=== PATIENT | male | born 1945 | race Caucasian/White ===

== ENCOUNTER 2017-01-05 21:50 | Inpatient (IN) | payer MEDICARE, SELFPAY ==
[~2017-01-05] VITALS: Ht 167.6 cm; Wt 71.9 kg
[2017-01-05 22:38] LABS: HEMOGLOBIN 16.5 gm/dl (14.0-17.5); RED BLOOD COUNT 4.64 M/UL (4.20-5.50); WHITE BLOOD COUNT 11.1 K/UL (4.5-11.0)
[2017-01-06 21:18] LABS: HEMOGLOBIN 14.8 gm/dl (14.0-17.5); RED BLOOD COUNT 4.19 M/UL (4.20-5.50); WHITE BLOOD COUNT 11.1 K/UL (4.5-11.0)
[2017-01-07 04:29] LABS: HEMOGLOBIN 14.7 gm/dl (14.0-17.5); RED BLOOD COUNT 4.17 M/UL (4.20-5.50); WHITE BLOOD COUNT 10.5 K/UL (4.5-11.0)
[2017-01-08 03:48] LABS: HEMOGLOBIN 14.8 gm/dl (14.0-17.5); RED BLOOD COUNT 4.17 M/UL (4.20-5.50); WHITE BLOOD COUNT 9.1 K/UL (4.5-11.0)
[2017-01-09 02:29] LABS: HEMOGLOBIN 14.1 gm/dl (14.0-17.5); RED BLOOD COUNT 3.99 M/UL (4.20-5.50); WHITE BLOOD COUNT 7.7 K/UL (4.5-11.0)
[2017-01-10] MEDS ORDERED: NORVASC5 MG PO (01:27)
[2017-01-10 05:11] LABS: RED BLOOD COUNT 3.98 M/UL (4.20-5.50); WHITE BLOOD COUNT 7.2 K/UL (4.5-11.0)
[2017-01-11 02:41] LABS: HEMOGLOBIN 13.7 gm/dl (14.0-17.5); RED BLOOD COUNT 3.9 M/UL (4.20-5.50); WHITE BLOOD COUNT 6.8 K/UL (4.5-11.0)
[2017-01-12 06:44] LABS: HEMOGLOBIN 14.4 gm/dl (14.0-17.5); RED BLOOD COUNT 4.12 M/UL (4.20-5.50)
[2017-01-13 06:12] LABS: HEMOGLOBIN 14.6 gm/dl (14.0-17.5); RED BLOOD COUNT 4.17 M/UL (4.20-5.50)
[2017-01-13 06:22] LABS: BUN/CREATININE RATIO 45 (0-10)
[2017-01-14] MEDS ORDERED: ASPIR 8181 MG PO (17:35)
[2017-01-14] MEDS ORDERED: LIPITOR TAB 2020 MG PO (17:36)
[2017-01-14] MEDS ORDERED: BUMEX 1MG TABLET1 MG PO (17:36)
[2017-01-14] MEDS ORDERED: LEXAPRO10 MG PO (17:37)
[2017-01-14] MEDS ORDERED: LISINOPRIL2.5 MG PO (17:42)
[2017-01-14] MEDS ORDERED: METOPROLOL SUCC25 MG PO (17:43)
[2017-01-14] MEDS ORDERED: WARFARIN SODIUM1 MG PO (17:44)
[2017-01-14] MEDS ORDERED: COMBIVENT0.074 GM/I INH (17:44)
== END 2017-01-14 19:13 | disposition home health service (06) | DRG 291 ==
LOC: EDBD 21:50 → ER1 21:50 → ZEROF 23:40 → MED SURG 4 23:40
PROVIDERS: Emergency Medicine; Family Medicine; Internal Medicine; Internal Medicine Nephrology; Student in an Organized Health Care Education/Training Program; ADMIT Internal Medicine
DX: I13.0 Hypertensive heart and chronic kidney disease with heart failure and stage 1 through stage 4 chronic kidney disease, or unspecified chronic kidney disease (principal); I50.23 Acute on chronic systolic (congestive) heart failure; J96.21 Acute and chronic respiratory failure with hypoxia; N17.9 Acute kidney failure, unspecified; I74.3 Embolism and thrombosis of arteries of the lower extremities; I31.3 Pericardial effusion (noninflammatory); N39.0 Urinary tract infection, site not specified; S37.30XA Unspecified injury of urethra, initial encounter; N18.3 Chronic kidney disease, stage 3 (moderate); J44.9 Chronic obstructive pulmonary disease, unspecified; I42.0 Dilated cardiomyopathy; I48.2 Chronic atrial fibrillation; D69.6 Thrombocytopenia, unspecified; I08.1 Rheumatic disorders of both mitral and tricuspid valves; E78.5 Hyperlipidemia, unspecified; R31.9 Hematuria, unspecified; Y84.6 Urinary catheterization as the cause of abnormal reaction of the patient, or of later complication, without mention of misadventure at the time of the procedure; Y73.1 Therapeutic (nonsurgical) and rehabilitative gastroenterology and urology devices associated with adverse incidents; D75.89 Other specified diseases of blood and blood-forming organs; R74.8 Abnormal levels of other serum enzymes; F32.9 Major depressive disorder, single episode, unspecified; F17.210 Nicotine dependence, cigarettes, uncomplicated; Z79.899 Other long term (current) drug therapy; Z88.6 Allergy status to analgesic agent; Z82.49 Family history of ischemic heart disease and other diseases of the circulatory system
CPT/HCPCS: ECHO; 36415; 51702; 71010; 76705; 78452; 80048; 80053; 80074; 81001; 82043; 82436; 82550; 82553; 82570; 82607; 83605; 83735; 83874; 83880; 84133; 84300; 84443; 84484; 85025; 85027; 85610; 85730; 87040; 87070; 87086; 87205; 93005; 93017; 93306; 93925; 94640; 94664; 96374; 96375; 97110; 97116; 97530; 99285; A9502; J0696; J1205; J1644; J1650; J1940; J2785; J7050

== ENCOUNTER → 2017-01-23 | Outpatient (CLI) | payer MEDICARE ==
[~2017-01-23] VITALS: Ht 167.6 cm; Wt 70.3 kg
[~2017-01-23] MED LIST: ALDACTONE25 MG PO; ASPIR 8181 MG PO; BUMEX 1MG TABLET1 MG PO; COMBIVENT0.074 GM/I INH; LANOXIN TAB 00.25 MG PO; LEXAPRO10 MG PO; LIPITOR TAB 2020 MG PO; LISINOPRIL2.5 MG PO; LOPRESSOR50 MG PO; METOPROLOL SUCC25 MG PO; NORVASC5 MG PO; WARFARIN SODIUM1 MG PO
== END ==
LOC: OPSV 15:32
DX: I48.91 Unspecified atrial fibrillation (principal)
CPT/HCPCS: 96372; J3430

== ENCOUNTER 2017-03-20 09:17 | Inpatient (IN) | payer MEDICARE ==
[~2017-03-20] VITALS: Ht 167.6 cm; Wt 75.3 kg
[~2017-03-20 09:17] MED LIST changes: -ALDACTONE25 MG PO; -LANOXIN TAB 00.25 MG PO; -LOPRESSOR50 MG PO
[2017-03-20 11:37] LABS: HEMOGLOBIN 12.1 gm/dl (14.0-17.5); RED BLOOD COUNT 3.47 M/UL (4.20-5.50); WHITE BLOOD COUNT 9.5 K/UL (4.5-11.0)
[2017-03-21 03:52] LABS: HEMOGLOBIN 12.6 gm/dl (14.0-17.5); RED BLOOD COUNT 3.66 M/UL (4.20-5.50); WHITE BLOOD COUNT 7.6 K/UL (4.5-11.0)
[2017-03-22 03:53] LABS: HEMOGLOBIN 11.4 gm/dl (14.0-17.5); RED BLOOD COUNT 3.31 M/UL (4.20-5.50); WHITE BLOOD COUNT 7.4 K/UL (4.5-11.0)
[2017-03-25 04:26] LABS: BUN/CREATININE RATIO 38 (0-10)
[2017-03-26 03:51] LABS: HEMOGLOBIN 12.8 gm/dl (14.0-17.5); RED BLOOD COUNT 3.68 M/UL (4.20-5.50); WHITE BLOOD COUNT 6.4 K/UL (4.5-11.0)
[2017-03-26 04:14] LABS: BUN/CREATININE RATIO 35 (0-10)
[2017-03-27 04:45] LABS: HEMOGLOBIN 12.2 gm/dl (14.0-17.5); RED BLOOD COUNT 3.52 M/UL (4.20-5.50)
[2017-03-27 04:46] LABS: WHITE BLOOD COUNT 10.8 K/UL (4.5-11.0)
[2017-03-28 04:00] LABS: HEMOGLOBIN 13.5 gm/dl (14.0-17.5); WHITE BLOOD COUNT 9.7 K/UL (4.5-11.0)
[2017-03-28 04:01] LABS: RED BLOOD COUNT 3.88 M/UL (4.20-5.50)
[2017-03-29 04:00] LABS: HEMOGLOBIN 13.2 gm/dl (14.0-17.5); RED BLOOD COUNT 3.79 M/UL (4.20-5.50); WHITE BLOOD COUNT 9.9 K/UL (4.5-11.0)
[2017-04-01 03:45] LABS: HEMOGLOBIN 13.7 gm/dl (14.0-17.5); RED BLOOD COUNT 3.92 M/UL (4.20-5.50)
[2017-04-01] MEDS ORDERED: LANOXIN TAB 00.25 MG PO (11:12)
[2017-04-01] MEDS ORDERED: LOPRESSOR50 MG PO (11:17)
[2017-04-01] MEDS ORDERED: ALDACTONE25 MG PO (11:20)
== END 2017-04-01 10:00 | disposition home health service (06) | DRG 291 ==
LOC: ER1 09:17 → ZEROF 12:53 → PROG CARE 12:53 → CCU 03-25 22:44 → PROG CARE 03-28 20:00
PROVIDERS: Family Medicine; Internal Medicine; Internal Medicine Interventional Cardiology; Internal Medicine Pulmonary Disease; ADMIT Emergency Medicine
PROC: 5A09457 Assistance with Respiratory Ventilation, 24-96 Consecutive Hours, Continuous Positive Airway Pressure (ICD-10-PCS; principal; 2017-03-20)
DX: I13.0 Hypertensive heart and chronic kidney disease with heart failure and stage 1 through stage 4 chronic kidney disease, or unspecified chronic kidney disease (principal); I50.23 Acute on chronic systolic (congestive) heart failure; J96.22 Acute and chronic respiratory failure with hypercapnia; J96.21 Acute and chronic respiratory failure with hypoxia; G93.40 Encephalopathy, unspecified; N17.9 Acute kidney failure, unspecified; E87.1 Hypo-osmolality and hyponatremia; J44.1 Chronic obstructive pulmonary disease with (acute) exacerbation; D68.4 Acquired coagulation factor deficiency; E87.3 Alkalosis; I42.0 Dilated cardiomyopathy; N18.3 Chronic kidney disease, stage 3 (moderate); E87.5 Hyperkalemia; T45.515A Adverse effect of anticoagulants, initial encounter; T50.1X5A Adverse effect of loop [high-ceiling] diuretics, initial encounter; I48.2 Chronic atrial fibrillation; D69.6 Thrombocytopenia, unspecified; D53.9 Nutritional anemia, unspecified; E78.5 Hyperlipidemia, unspecified; I73.9 Peripheral vascular disease, unspecified; R74.8 Abnormal levels of other serum enzymes; R74.0 Nonspecific elevation of levels of transaminase and lactic acid dehydrogenase [LDH]; Z87.891 Personal history of nicotine dependence; Z79.01 Long term (current) use of anticoagulants; Z79.82 Long term (current) use of aspirin; Z79.899 Other long term (current) drug therapy; Z82.49 Family history of ischemic heart disease and other diseases of the circulatory system
CPT/HCPCS: ECHO; 36415; 36600; 71010; 71020; 80048; 80053; 80162; 81001; 82550; 82553; 82803; 82962; 83735; 83874; 83880; 84439; 84443; 84484; 85025; 85027; 85610; 85730; 93005; 93306; 94640; 94660; 94664; 96374; 96375; 97110; 97116; 97530; 99285; J1120; J1160; J1250; J1940; J2550; J2930; J7050

== ENCOUNTER → 2017-04-22 | Outpatient (CLI) | payer MEDICARE, OTHER ==
[~2017-04-22] MED LIST changes: +ALDACTONE25 MG PO; +LANOXIN TAB 00.25 MG PO; +LOPRESSOR50 MG PO
== END ==
LOC: ECHO 04-17 14:00
DX: I50.9 Heart failure, unspecified (principal); I34.0 Nonrheumatic mitral (valve) insufficiency
CPT/HCPCS: ECHO; 93306

== ENCOUNTER 2022-02-17 23:44 | Inpatient (IN) | payer MEDICARE, OTHER ==
[~2022-02-17] VITALS: Ht 167.6 cm; Wt 88.2 kg
[~2022-02-17 23:44] MED LIST changes: +AMLODIPINE BESYL5 MG PO; +CEFUROXIME250 MG PO; -COMBIVENT0.074 GM/I INH; +HYDRALAZINE HCL50 MG PO; +IPRAT-ALBUT 0.5-3 ML INH; -LIPITOR TAB 2020 MG PO; +LIPITOR80 MG PO; +LOPRESSOR 25 MG25 MG PO; +MEDROL4 MG PO
[2022-02-18 00:26] LABS: HEMOGLOBIN 13.9 gm/dl (14.0-17.5); RED BLOOD COUNT 4.14 M/UL (4.20-5.50); WHITE BLOOD COUNT 13.5 K/UL (4.5-11.0)
[2022-02-18] MEDS ORDERED: TRELEGY ELLIPT1 EACH INH (15:38)
[2022-02-19 03:13] LABS: HEMOGLOBIN 12.7 gm/dl (14.0-17.5); RED BLOOD COUNT 3.79 M/UL (4.20-5.50)
[2022-02-19 03:22] LABS: WHITE BLOOD COUNT 9.4 K/UL (4.5-11.0)
[2022-02-19 04:06] LABS: BUN/CREATININE RATIO 18 (0-10)
[2022-02-20 03:21] LABS: HEMOGLOBIN 13.8 gm/dl (14.0-17.5); RED BLOOD COUNT 4.12 M/UL (4.20-5.50)
[2022-02-20 03:22] LABS: WHITE BLOOD COUNT 15.3 K/UL (4.5-11.0)
[2022-02-20 03:25] LABS: BUN/CREATININE RATIO 24 (0-10)
[2022-02-21 03:26] LABS: HEMOGLOBIN 13.3 gm/dl (14.0-17.5); RED BLOOD COUNT 3.94 M/UL (4.20-5.50)
[2022-02-21 03:58] LABS: WHITE BLOOD COUNT 9.9 K/UL (4.5-11.0)
[2022-02-22 02:42] LABS: HEMOGLOBIN 13.2 gm/dl (14.0-17.5); RED BLOOD COUNT 3.97 M/UL (4.20-5.50); WHITE BLOOD COUNT 10.3 K/UL (4.5-11.0)
[2022-02-23] MEDS ORDERED: ATORVASTATIN CA40 MG PO (09:32)
[2022-02-23] MEDS ORDERED: MEDROL4 MG PO (09:32)
[2022-02-23] MEDS ORDERED: ELIQUIS 5 MG TAB5 MG PO (09:32)
[2022-02-23] MEDS ORDERED: LOPRESSOR 50 MG50 MG PO (09:36)
[2022-02-23] MEDS ORDERED: LEVOFLOXACIN750 MG PO (09:40)
[2022-02-23] MEDS ORDERED: GLUCOPHAGE 500500 MG PO (09:44)
[2022-02-23] MEDS ORDERED: DILTIAZEM 24HR180 M1 PO (09:57)
== END 2022-02-23 12:36 | disposition home health service (06) | DRG 308 ==
LOC: ER1 23:44 → CDU 02-18 01:58 → PROG CARE 02-18 01:58
PROVIDERS: Family Medicine; Internal Medicine; ADMIT Internal Medicine
PROC: B24BZZZ Ultrasonography of Heart with Aorta (ICD-10-PCS; principal; 2022-02-18)
PROC: 5A09457 Assistance with Respiratory Ventilation, 24-96 Consecutive Hours, Continuous Positive Airway Pressure (ICD-10-PCS; 2022-02-20)
PROC: 5A09357 Assistance with Respiratory Ventilation, Less than 24 Consecutive Hours, Continuous Positive Airway Pressure (ICD-10-PCS; 2022-02-20)
PROC: 5A09357 Assistance with Respiratory Ventilation, Less than 24 Consecutive Hours, Continuous Positive Airway Pressure (ICD-10-PCS; 2022-02-22)
PROC: 5A09357 Assistance with Respiratory Ventilation, Less than 24 Consecutive Hours, Continuous Positive Airway Pressure (ICD-10-PCS; 2022-02-23)
PROC: 5A0935A Assistance with Respiratory Ventilation, Less than 24 Consecutive Hours, High Flow/Velocity Cannula (ICD-10-PCS; 2022-02-23)
DX: I48.0 Paroxysmal atrial fibrillation (principal); J96.21 Acute and chronic respiratory failure with hypoxia; J18.9 Pneumonia, unspecified organism; I13.0 Hypertensive heart and chronic kidney disease with heart failure and stage 1 through stage 4 chronic kidney disease, or unspecified chronic kidney disease; Z20.822 Contact with and (suspected) exposure to COVID-19; G93.40 Encephalopathy, unspecified; I50.32 Chronic diastolic (congestive) heart failure; E87.2 Acidosis; I42.9 Cardiomyopathy, unspecified; D69.6 Thrombocytopenia, unspecified; N18.30 Chronic kidney disease, stage 3 unspecified; F17.210 Nicotine dependence, cigarettes, uncomplicated; E78.5 Hyperlipidemia, unspecified; I73.9 Peripheral vascular disease, unspecified; F32.A Depression, unspecified; E66.9 Obesity, unspecified; J44.9 Chronic obstructive pulmonary disease, unspecified; Z99.81 Dependence on supplemental oxygen; Z82.49 Family history of ischemic heart disease and other diseases of the circulatory system; Z79.01 Long term (current) use of anticoagulants; Z79.82 Long term (current) use of aspirin; Z68.31 Body mass index [BMI] 31.0-31.9, adult
CPT/HCPCS: ECHO; 36415; 36600; 71045; 71046; 71250; 80048; 80053; 82550; 82553; 82803; 82962; 83605; 83735; 83880; 84484; 85025; 85027; 85610; 87040; 92610; 93005; 93306; 94640; 94660; 94664; 94760; 96374; 96375; 97110-GP-CQ; 97116-GP-CQ; 97162; 97165; 97530-GP-CQ; 99285; J0696; J1335; J1940; J2185; J2920; U0002

== ENCOUNTER 2022-03-13 19:40 | Inpatient (IN) | payer MEDICARE, OTHER ==
[~2022-03-13] VITALS: Ht 167.6 cm; Wt 87.2 kg
[~2022-03-13 19:40] MED LIST changes: +ATORVASTATIN CA40 MG PO; +DILTIAZEM 24HR180 M1 PO; +ELIQUIS 5 MG TAB5 MG PO; +GLUCOPHAGE 500500 MG PO; +LEVOFLOXACIN750 MG PO; +LOPRESSOR 50 MG50 MG PO; +TRELEGY ELLIPT1 EACH INH
[2022-03-13 20:25] LABS: HEMOGLOBIN 13.2 gm/dl (14.0-17.5); RED BLOOD COUNT 3.94 M/UL (4.20-5.50); WHITE BLOOD COUNT 14.4 K/UL (4.5-11.0)
[2022-03-14 09:30] LABS: HEMOGLOBIN 11.6 gm/dl (14.0-17.5)
[2022-03-14 09:33] LABS: RED BLOOD COUNT 3.48 M/UL (4.20-5.50); WHITE BLOOD COUNT 6.7 K/UL (4.5-11.0)
[2022-03-14 10:01] LABS: BUN/CREATININE RATIO 22 (0-10)
[2022-03-14] MEDS ORDERED: GLUCOPHAGE 500500 MG PO (10:45)
[2022-03-14] MEDS ORDERED: MULTIVITAMIN1 EACH PO (12:28)
[2022-03-15 06:37] LABS: HEMOGLOBIN 10.5 gm/dl (14.0-17.5)
[2022-03-15 06:41] LABS: RED BLOOD COUNT 3.09 M/UL (4.20-5.50); WHITE BLOOD COUNT 8.9 K/UL (4.5-11.0)
[2022-03-16 04:32] LABS: HEMOGLOBIN 11.7 gm/dl (14.0-17.5); WHITE BLOOD COUNT 7.9 K/UL (4.5-11.0)
[2022-03-16 04:33] LABS: RED BLOOD COUNT 3.49 M/UL (4.20-5.50)
[2022-03-17] MEDS ORDERED: MEDROL DOSEPAK 24 MG PO (11:09)
[2022-03-17] MEDS ORDERED: OMNICEF 300 MG300 MG PO (11:09)
[2022-03-17] MEDS ORDERED: ACETAZOLAMIDE250 MG PO (11:10)
[2022-03-17] MEDS ORDERED: FUROSEMIDE20 MG PO (11:10)
== END 2022-03-17 13:20 | disposition home or self-care (01) | DRG 193 ==
LOC: ER1 19:40 → PROG CARE 21:10 → CDU 21:10 → PROG CARE 03-14 09:52
PROVIDERS: Internal Medicine; Preventive Medicine Occupational Medicine; ADMIT Internal Medicine
DX: J18.9 Pneumonia, unspecified organism (principal); J96.21 Acute and chronic respiratory failure with hypoxia; G93.41 Metabolic encephalopathy; I50.23 Acute on chronic systolic (congestive) heart failure; J96.22 Acute and chronic respiratory failure with hypercapnia; J44.1 Chronic obstructive pulmonary disease with (acute) exacerbation; I50.22 Chronic systolic (congestive) heart failure; I48.21 Permanent atrial fibrillation; I13.0 Hypertensive heart and chronic kidney disease with heart failure and stage 1 through stage 4 chronic kidney disease, or unspecified chronic kidney disease; J44.0 Chronic obstructive pulmonary disease with (acute) lower respiratory infection; N18.30 Chronic kidney disease, stage 3 unspecified; D64.9 Anemia, unspecified; D69.6 Thrombocytopenia, unspecified; E11.22 Type 2 diabetes mellitus with diabetic chronic kidney disease; Z66 Do not resuscitate; K59.00 Constipation, unspecified; I73.9 Peripheral vascular disease, unspecified; Z87.891 Personal history of nicotine dependence; Z79.01 Long term (current) use of anticoagulants; Z91.14 Patient's other noncompliance with medication regimen; Z99.81 Dependence on supplemental oxygen
CPT/HCPCS: 0240U; 36415; 36600; 71045; 80048; 80053; 80202; 81001; 82533; 82550; 82553; 82803; 82962; 83036; 83605; 83735; 83880; 84439; 84443; 84484; 85025; 85027; 85652; 86140; 87040; 87081; 87086; 93005; 94640; 94660; 94664; 94760; 96374; 99285; G0378; J0692; J0696; J1940; J2920; J3370; J7070

== ENCOUNTER 2022-03-25 23:13 | Inpatient (IN) | payer MEDICARE, OTHER ==
[~2022-03-25] VITALS: Ht 167.6 cm; Wt 86.2 kg
[~2022-03-25 23:13] MED LIST changes: +ACETAZOLAMIDE250 MG PO; +FUROSEMIDE20 MG PO; +MEDROL DOSEPAK 24 MG PO; +MULTIVITAMIN1 EACH PO; +OMNICEF 300 MG300 MG PO
[2022-03-25 23:54] LABS: HEMOGLOBIN 13.7 gm/dl (14.0-17.5); RED BLOOD COUNT 4.05 M/UL (4.20-5.50); WHITE BLOOD COUNT 14.6 K/UL (4.5-11.0)
[2022-03-26 00:25] LABS: BUN/CREATININE RATIO 39 (0-10)
[2022-03-26] MEDS ORDERED: FARXIGA10 MG PO (10:17)
[2022-03-27 06:25] LABS: HEMOGLOBIN 14.5 gm/dl (14.0-17.5); RED BLOOD COUNT 4.18 M/UL (4.20-5.50); WHITE BLOOD COUNT 11.2 K/UL (4.5-11.0)
[2022-03-27 07:11] LABS: BUN/CREATININE RATIO 34 (0-10)
[2022-03-28 10:12] LABS: BUN/CREATININE RATIO 28 (0-10)
[2022-03-29] MEDS ORDERED: ACETAZOLAMIDE250 MG PO (09:44)
[2022-03-29] MEDS ORDERED: FUROSEMIDE20 MG PO (09:44)
[2022-03-29] MEDS ORDERED: OMNICEF 300 MG300 MG PO (09:46)
== END 2022-03-29 12:28 | disposition home health service (06) | DRG 689 ==
LOC: ER1 23:13 → CDU 03-26 04:30 → MED SURG 4 03-26 04:30 → CDU 03-26 04:30 → MED SURG 4 03-26 15:40
PROVIDERS: Family Medicine; Internal Medicine; ADMIT Internal Medicine
PROC: 5A09357 Assistance with Respiratory Ventilation, Less than 24 Consecutive Hours, Continuous Positive Airway Pressure (ICD-10-PCS; principal; 2022-03-28)
PROC: 5A09357 Assistance with Respiratory Ventilation, Less than 24 Consecutive Hours, Continuous Positive Airway Pressure (ICD-10-PCS; 2022-03-29)
DX: N30.00 Acute cystitis without hematuria (principal); G93.41 Metabolic encephalopathy; N17.9 Acute kidney failure, unspecified; J96.11 Chronic respiratory failure with hypoxia; I50.42 Chronic combined systolic (congestive) and diastolic (congestive) heart failure; I13.0 Hypertensive heart and chronic kidney disease with heart failure and stage 1 through stage 4 chronic kidney disease, or unspecified chronic kidney disease; I48.20 Chronic atrial fibrillation, unspecified; I73.9 Peripheral vascular disease, unspecified; J44.9 Chronic obstructive pulmonary disease, unspecified; I48.0 Paroxysmal atrial fibrillation; E11.22 Type 2 diabetes mellitus with diabetic chronic kidney disease; E78.5 Hyperlipidemia, unspecified; R32 Unspecified urinary incontinence; R53.81 Other malaise; E11.51 Type 2 diabetes mellitus with diabetic peripheral angiopathy without gangrene; R53.83 Other fatigue; N18.30 Chronic kidney disease, stage 3 unspecified; Z99.81 Dependence on supplemental oxygen; Z82.49 Family history of ischemic heart disease and other diseases of the circulatory system; Z87.891 Personal history of nicotine dependence; Z79.01 Long term (current) use of anticoagulants; Z79.84 Long term (current) use of oral hypoglycemic drugs; Z79.899 Other long term (current) drug therapy
CPT/HCPCS: 71045; 80048; 80053; 81001; 82550; 82553; 82962; 83880; 84484; 85025; 87086; 93005; 94640; 94660; 94760; 96374; 96375; 96376; 97116; 97116-GP-CQ; 97162; 97530; 99285; G0378; J0696; J1450; J7030

== ENCOUNTER 2022-04-09 17:25 | Inpatient (IN) | payer MEDICARE, OTHER ==
[~2022-04-09] VITALS: Ht 167.6 cm; Wt 81.8 kg
[~2022-04-09 17:25] MED LIST changes: +FARXIGA10 MG PO
[2022-04-09 17:58] LABS: HEMOGLOBIN 12.6 gm/dl (14.0-17.5); RED BLOOD COUNT 3.7 M/UL (4.20-5.50); WHITE BLOOD COUNT 6.8 K/UL (4.5-11.0)
[2022-04-09 18:32] LABS: BUN/CREATININE RATIO 18 (0-10)
[2022-04-10 04:35] LABS: HEMOGLOBIN 11.2 gm/dl (14.0-17.5)
[2022-04-10 04:36] LABS: RED BLOOD COUNT 3.31 M/UL (4.20-5.50); WHITE BLOOD COUNT 3.6 K/UL (4.5-11.0)
[2022-04-10] MEDS ORDERED: FARXIGA10 MG PO (10:13)
[2022-04-11 06:41] LABS: HEMOGLOBIN 10.9 gm/dl (14.0-17.5); RED BLOOD COUNT 3.28 M/UL (4.20-5.50)
[2022-04-11 06:42] LABS: WHITE BLOOD COUNT 7.3 K/UL (4.5-11.0)
[2022-04-11] MEDS ORDERED: MEDROL4 MG PO (08:30)
[2022-04-11] MEDS ORDERED: LEVOFLOXACIN500 MG PO (08:30)
[2022-04-12 16:11] LABS: ORGANISM ID Not indicated. (.); SPECIMEN SOURCE Urine (.); STREPTOCOCCUS PNEUMONIAE AG Negative (Negative)
== END 2022-04-11 12:47 | disposition home health service (06) | DRG 193 ==
LOC: ER1 17:25 → MED SURG 4 18:50 → CDU 18:50 → MED SURG 4 04-10 06:44
PROVIDERS: Emergency Medicine; Family Medicine; ADMIT Internal Medicine
DX: J18.9 Pneumonia, unspecified organism (principal); Z20.822 Contact with and (suspected) exposure to COVID-19; J96.21 Acute and chronic respiratory failure with hypoxia; J44.1 Chronic obstructive pulmonary disease with (acute) exacerbation; J44.0 Chronic obstructive pulmonary disease with (acute) lower respiratory infection; I13.0 Hypertensive heart and chronic kidney disease with heart failure and stage 1 through stage 4 chronic kidney disease, or unspecified chronic kidney disease; I50.22 Chronic systolic (congestive) heart failure; I48.20 Chronic atrial fibrillation, unspecified; N17.9 Acute kidney failure, unspecified; E11.51 Type 2 diabetes mellitus with diabetic peripheral angiopathy without gangrene; M16.12 Unilateral primary osteoarthritis, left hip; E11.22 Type 2 diabetes mellitus with diabetic chronic kidney disease; Z99.81 Dependence on supplemental oxygen; Z79.01 Long term (current) use of anticoagulants; Z82.49 Family history of ischemic heart disease and other diseases of the circulatory system; Z87.891 Personal history of nicotine dependence; Z79.4 Long term (current) use of insulin
CPT/HCPCS: 36415; 71045; 73502; 80048; 80053; 81001; 82550; 82553; 82962; 83540; 83550; 83605; 83735; 83880; 84484; 85025; 85027; 85610; 86140; 87040; 87077; 87086; 87186; 87278; 87899; 93005; 94640; 94664; 94760; 96374; 96375; 96376; 97161; 97166; 99285; J0696; J2920; J2930